=== PATIENT | female | born 1950 | race Caucasian/White ===

== ENCOUNTER → 2016-04-29 | Outpatient (CLI) | payer BC ==
--- NOTE | 2016-04-29 16:32 | P.HPBAR ---
Bariatric H&P - History & Physicial H&P Date: 04/29/16 History & Physicial: Visit/CC: anil f/u (october 2015) Patient initial contact: Initial weight: 119.522 kg Initial weight in pounds: 263.50 Height: 5 ft Initial BMI: 51.4 Last weight: Current weight: 97.432 kg Current weight in pounds: 214.80 Current BMI: 41.9 [place] body weight (based on NIH guidelines): 45.359 kg Excess body weight loss: 29.7% The patient is a 65 year-old F who presents for Bariatric Assessment. Patient rents today for sleeve gastrectomy follow-up. She is quite depressed over her recent news of her nephews . The patient states that she's had no real issues with her stomach. She does have some mild GERD and arthritis. Past Medical History Past Medical History: Asthma, Cancer, GERD/Reflux, Hyperlipidemia, Hypertension , Osteoarthritis (OA), Seizure Disorder, Thyroid Disorder Additional Past Medical History / Comment(s): HX OF BASAL CELL SKIN CANCER with removal, HX OF POSS SEIZURE, UNSURE, BUT TAKES PREVENTATIVE RX. OCC EDEMA ANKLES. DIVERTICULITIS., SPINAL STENOSIS, ARTHRITIS PAIN -BACK, KNEES, & HANDS. History of Any Multi-Drug Resistant Organisms: None Reported Past Surgical History: Adenoidectomy, Bariatric Surgery, Bowel Resection, Cholecystectomy, Joint Replacement, Tonsillectomy Additional Past Surgical History / Comment(s): 10/24/15 laparoscopic sleeve gastrectomy. Other surgical hx: LAP BAND (2001), REPLACEMENT BAND, ANOTHER REPLACEMENT BAND AND PORT. , SPINAL FUSION X2. , TOTAL RT KNEE 2013., EGD ., REMOVAL OF LAP BAND (09/28/2015) Past Anesthesia/Blood Transfusion Reactions: Family History of Problems w/ Anesthesia, Postoperative Nausea & Vomiting (PONV) Additional Past Anesthesia/Blood Transfusion Reaction / Comm: FAMILY HAS PONV. PT RECEIVED BLOOD TRANSFUSION WITH BACK SURGERY- NO REACTION. Past Psychological History: Anxiety, Depression Additional Psychological History / Comment(s): Pt resides alone. She is independent. . 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 No international travel. No animal exposures. Smoked only while she was in high school no recreational drug use no alcohol use Smoking Status: Never smoker Past Alcohol Use History: None Reported Additional Past Alcohol Use History / Comment(s): smoking: started 1967 stopped 1972 Past Drug Use History: None Reported - Past Family History Mother Family Medical History: Myocardial Infarction ([place]) Additional Family Medical History / Comment(s): passed from [place] Father Family Medical History: Chest Pain / Angina, COPD, Coronary Artery Disease (CAD) Brother(s) Family Medical History: Cancer Surgical - Exam Vital Signs Temp Pulse Resp BP 97.7 F 88 14 122/78 04/29/16 13:12 04/29/16 13:12 04/29/16 13:12 04/29/16 13:12 - General well developed, no distress - Eyes PERRL - ENT normal pinna - Neck no masses - Cardiovascular Rhythm: regular - Abdomen Abdomen: soft, non tender Bariatric Assessment & Plan Plan: As for sleeve gastrectomy. Patient has lost approximately 50 pounds. She'll follow-up in one month for recheck. Her GERD symptoms and arthritis will be observed at this point. Bariatric Checklist Checklist: Plan: Checklist: EGD: 1. Hiatal hernia: 2. H. Pylori: HgbA1c: Vitamin D: Smoking: Never smoker Primary care physician referral: migdalia Ray ([place]) Psychiatry clearance: Cardiology clearance: Sleep study: Diet journal: VTE risk score: VTE risk level: Rehab needs at discharge:
== END | disposition home or self-care (01) ==
CPT/HCPCS: 99211

== ENCOUNTER → 2016-06-24 | Outpatient (CLI) | payer BC ==
--- NOTE | 2016-06-24 14:43 | P.HPBAR ---
Bariatric H&P - History & Physicial H&P Date: 06/24/16 History & Physicial: Visit/CC: Patient initial contact: Initial weight: 119.522 kg Initial weight in pounds: Height: 5 ft Initial BMI: Last weight: Current weight: 95.254 kg Current weight in pounds: Current BMI: [place] body weight (based on NIH guidelines): Excess body weight loss: The patient is a 66 year-old F who presents for Bariatric Assessment. Patient has complaints of back pain and some minimal GERD. She's had some mild nausea. She is currently seeing her PCP for medications for her back pain. She has lost approximately 5 pounds since her last visit. Past Medical History Past Medical History: Asthma, Cancer, GERD/Reflux, Hyperlipidemia, Hypertension , Osteoarthritis (OA), Seizure Disorder, Thyroid Disorder Additional Past Medical History / Comment(s): HX OF BASAL CELL SKIN CANCER with removal, HX OF POSS SEIZURE, UNSURE, BUT TAKES PREVENTATIVE RX. OCC EDEMA ANKLES. DIVERTICULITIS., SPINAL STENOSIS, ARTHRITIS PAIN -BACK, KNEES, & HANDS. History of Any Multi-Drug Resistant Organisms: None Reported Past Surgical History: Adenoidectomy, Bariatric Surgery, Bowel Resection, Cholecystectomy, Joint Replacement, Tonsillectomy Additional Past Surgical History / Comment(s): 10/24/15 laparoscopic sleeve gastrectomy. Other surgical hx: LAP BAND (2001), REPLACEMENT BAND, ANOTHER REPLACEMENT BAND AND PORT. , SPINAL FUSION X2. , TOTAL RT KNEE 2013., EGD ., REMOVAL OF LAP BAND (09/28/2015) Past Anesthesia/Blood Transfusion Reactions: Family History of Problems w/ Anesthesia, Postoperative Nausea & Vomiting (PONV) Additional Past Anesthesia/Blood Transfusion Reaction / Comm: FAMILY HAS PONV. PT RECEIVED BLOOD TRANSFUSION WITH BACK SURGERY- NO REACTION. Past Psychological History: Anxiety, Depression Additional Psychological History / Comment(s): Pt resides alone. She is independent. . 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 No international travel. No animal exposures. Smoked only while she was in high school no recreational drug use no alcohol use Smoking Status: Never smoker Past Alcohol Use History: None Reported Additional Past Alcohol Use History / Comment(s): smoking: started 1968 stopped 1972 Past Drug Use History: None Reported - Past Family History Mother Family Medical History: Myocardial Infarction ([place]) Additional Family Medical History / Comment(s): passed from [place] Father Family Medical History: Chest Pain / Angina, COPD, Coronary Artery Disease (CAD) Brother(s) Family Medical History: Cancer Surgical - Exam - General well developed - Eyes PERRL - Abdomen Abdomen: soft, non tender Bariatric Assessment & Plan Plan: Status post sleeve gastrectomy. Patient's GERD symptoms will be observed. She' ll follow-up in 2 months. Bariatric Checklist Checklist: Plan: Checklist: EGD: 1. Hiatal hernia: 2. H. Pylori: HgbA1c: Vitamin D: Smoking: Never smoker Primary care physician referral: migdalia Ray ([place]) Psychiatry clearance: Cardiology clearance: Sleep study: Diet journal: VTE risk score: VTE risk level: Rehab needs at discharge:
[2016-06-24 14:44] VITALS: BP 122/58; PULSE 68; TEMP 98; BMI 41.0
== END | disposition home or self-care (01) ==
LOC: BARWHC3 12:41
PROVIDERS: ATTEND Surgery
DX: R11.0 Nausea (principal); M54.9 Dorsalgia, unspecified; Z98.84 Bariatric surgery status
CPT/HCPCS: 99211